=== PATIENT | female | born 1980 | race Two or more races ===

== ENCOUNTER → 2018-10-04 | Emergency (ER) | payer OTHER ==
[~2018-10-04] VITALS: Ht 157.5 cm; Wt 59.0 kg
[~2018-10-04] MED LIST: ATENOLOL25 MG; OMEPRAZOLE20 MG; RANITIDINE HCL150 MG
== END | disposition left against medical advice (07) ==
LOC: ER 00:34
DX: Z53.20 Procedure and treatment not carried out because of patient's decision for unspecified reasons (principal)